=== PATIENT | female | born 1940 | race Hispanic/Latino ===

== ENCOUNTER 2017-02-02 09:03 | Outpatient (CLI) | payer MEDICARE, OTHER ==
--- NOTE | 2017-02-02 09:43 | Mammography Report ---
Bilateral mammogram: Compared to 11/07/13. CAD study utilized. Findings: Predominance adipose tissue bilaterally. No mass or microcalcification. Benign axillary nodes. Impression: Benign findings. Annual followup recommended. BI-RADS CATEGORY: 2 = Benign ACR BI-RADS MAMMOGRAPHIC CODES: 0 = Needs additional imaging evaluation; 1 = Negative; 2 = Benign; 3 = Probably benign; 4 = Suspicious; 5 = Malignant; 6 = Known biopsy-proven malignancy COMMENT: 1. Dense breast tissue, i.e., adenosis, fibrocystic changes, etc., may obscure an underlying neoplasm. 2. Approximately 10% of cancers are not detected with mammography. 3. A negative mammography report should not delay biopsy if a clinically suspicious mass is present. COMMENT: Patient follow-up letters are generated in [employer].
== END 2017-02-02 09:04 | disposition home or self-care (01) ==
LOC: MAMMO 09:03
PROVIDERS: ATTEND Family Medicine Adult Medicine
DX: Z12.31 Encounter for screening mammogram for malignant neoplasm of breast (principal)
CPT/HCPCS: 77067; G0202

== ENCOUNTER 2018-10-04 16:06 | Inpatient (IN) | payer MEDICARE ==
--- NOTE | 2018-10-04 16:15 | Emergency Department Report ---
Blank Doc - Documentation Documentation: This is a 78-year-old female that presents with SOB, weakness, and heart palpa tions. HX of A-fib. This initial assessment/diagnostic orders/clinical plan/treatment(s) is/are subject to change based on patient's health status, clinical progression and re- assessment by fellow clinical providers in the ED. Further treatment and workup at subsequent clinical providers discretion. Patient/guardians urged not to elope from the ED as their condition may be serious if not clinically assessed and managed. Initial orders include: 1- Patient sent to MAIN ED for further evaluation and treatment 2- labs 3- EKG 4- CXR
[2018-10-04 16:40] LABS: Basophils % (Auto) 0.4 % (0.0-1.8); Eosinophils % (Auto) 0.1 % (0.0-4.3); Hematocrit 37.1 % (30.3-42.9); Hemoglobin 12.5 gm/dl (10.1-14.3); Lymphocytes # (Auto) 0.8 K/mm3 (1.2-5.4); Lymphocytes % (Auto) 9.7 % (13.4-35.0); Mean Corpuscular HGB Conc 34 % (30-34); Mean Corpuscular Volume 86 fl (79-97); Monocytes # (Auto) 0.6 K/mm3 (0.0-0.8); Monocytes % (Auto) 7.8 % (0.0-7.3); Platelet Count 196 K/mm3 (140-440); Red Blood Count 4.33 M/mm3 (3.65-5.03); Red Cell Distribution Width 13.7 % (13.2-15.2)
[2018-10-04 16:50] LABS: INR 1.31 (0.87-1.13)
--- NOTE | 2018-10-04 16:52 | XRay Report ---
PROCEDURE: XR CHEST ROUTINE 2V TECHNIQUE: PA and lateral chest radiographs were obtained. HISTORY: Chest Pain COMPARISONS: None. FINDINGS: There is confluent opacity within the right upper lobe distribution. Cardiac and mediastinal contours are within normal range. Pulmonary vasculature is unremarkable. No pleural fluid collection seen. IMPRESSION: Right upper lobe infiltrate most consistent with pneumonia This document is electronically signed by Colton Obando MD., Oct 04 2018 04:50:52 PM ET
[2018-10-04 16:55] LABS: BUN/Creatinine Ratio 24; Blood Urea Nitrogen 22 mg/dL (7-17); Calcium 9.1 mg/dL (8.4-10.2); Hemolysis Index 9
--- NOTE | 2018-10-04 17:34 | Emergency Department Report ---
ED General Adult HPI - General Chief complaint: Weakness Stated complaint: AFIB Time Seen by Provider: 10/04/18 16:14 Source: patient, RN notes reviewed Mode of arrival: Ambulatory Limitations: No Limitations - History of Present Illness Initial comments: Primary care Dr.: Dr. Lopez Cardiology: Dr. Tucker Atrial fibrillation, on systemic anticoagulation This is a 78-year-old female, who presents to the emergency room with a complaint of fevers, cough, malaise, fatigue, generalized weakness. Symptoms present for 3-4 days. They're constant. They worse with physical exertion. It decreased with rest. There is no headache, neck pain, chest pain. There is shortness of breath. There is no abdominal pain. No urinary symptoms. 2 episodes of loose watery diarrhea yesterday. No leg pain. Positive minimal lower extremity swelling. This is a baseline. Patient endorses compliance with medications. No recent antibiotic use. Reports "allergy" to penicillins is hives without anaphylaxis. -: Gradual, days(s) Consistency: constant Improves with: rest Worsens with: movement Associated Symptoms: cough, fever/chills, loss of appetite, malaise, shortness of breath, weakness - Related Data Allergies Allergy/AdvReac Type Severity Reaction Status Date / Time Penicillins Allergy Hives Unverified 11/07/13 08:38 Sulfa (Sulfonamide Allergy Nausea Unverified 11/07/13 08:38 Antibiotics) ED Review of Systems ROS: Stated complaint: AFIB Other details as noted in HPI Constitutional: fever, malaise, weakness Eyes: denies: eye discharge ENT: congestion Respiratory: shortness of breath Cardiovascular: denies: chest pain Gastrointestinal: diarrhea. denies: abdominal pain Genitourinary: denies: dysuria Musculoskeletal: denies: back pain Skin: denies: lesions Neurological: weakness ED Past Medical Hx - Past Medical History Previous Medical History?: Yes Hx Hypertension: Yes Hx Diabetes: Yes Additional medical history: A fib - Social History Smoking Status: Never Smoker ED Physical Exam - General Limitations: No Limitations General appearance: alert, in no apparent distress - Head Head exam: Present: atraumatic, normocephalic - Eye Eye exam: Present: normal appearance, EOMI. Absent: nystagmus - ENT ENT exam: Present: normal exam, normal orophraynx, mucous membranes moist, n ormal external ear exam - Neck Neck exam: Present: normal inspection, full ROM. Absent: tenderness, meningismus - Respiratory Respiratory exam: Present: decreased breath sounds. Absent: respiratory distress, rales, rhonchi, stridor - Cardiovascular Cardiovascular Exam: Present: tachycardia, irregular rhythm, normal heart sounds. Absent: systolic murmur, diastolic murmur, rubs, gallop - GI/Abdominal GI/Abdominal exam: Present: soft. Absent: distended, tenderness, guarding, rebound, rigid, pulsatile mass - Extremities Exam Extremities exam: Present: full ROM, pedal edema, other (2+ pulses noted in the bilateral upper, lower extremities. Compartments soft. No long bony tenderness. The pelvis is stable.). Absent: calf tenderness - Back Exam Back exam: Present: normal inspection, full ROM. Absent: tenderness, CVA tenderness (R), CVA tenderness (L), paraspinal tenderness, vertebral tenderness - Neurological Exam Neurological exam: Present: alert, oriented X3, other (Extraocular movements intact. Tongue midline. No facial droop. Facial sensation intact to light touch in the V1, V2, V3 distribution bilaterally. 5 and 5 strength in 4 extremities.. Sensation is intact to light touch in 4 extremities.). Absent: motor sensory deficit - Psychiatric Psychiatric exam: Present: normal affect, normal mood - Skin Skin exam: Present: warm, dry, intact, normal color. Absent: rash ED Course Vital Signs 10/04/18 10/04/18 10/04/18 16:14 17:49 17:50 Temperature 97.9 F 98.9 F 98.4 F Pulse Rate 125 H 82 Respiratory 18 18 Rate Blood Pressure 127/70 Blood Pressure 132/68 [Right] O2 Sat by Pulse 98 100 Oximetry ED Medical Decision Making - Lab Data Result diagrams: 10/04/18 16:21 10/04/18 16:21 Vital Signs 10/04/18 16:14 Temperature 97.9 F Pulse Rate 125 H Respiratory 18 Rate Blood Pressure 127/70 O2 Sat by Pulse 98 Oximetry Lab Results 10/04/18 10/04/18 10/04/18 Range/Units 16:21 16:21 16:21 WBC 8.0 (4.5-11.0) K/mm3 RBC 4.33 (3.65-5.03) M/mm3 Hgb 12.5 (10.1-14.3) gm/dl Hct 37.1 (30.3-42.9) % MCV 86 (79-97) fl MCH 29 (28-32) pg MCHC 34 (30-34) % RDW 13.7 (13.2-15.2) % Plt Count 196 (140-440) K/mm3 Lymph % (Auto) 9.7 L (13.4-35.0) % [place] % (Auto) 7.8 H (0.0-7.3) % Eos % (Auto) 0.1 (0.0-4.3) % Baso % (Auto) 0.4 (0.0-1.8) % Lymph # 0.8 L (1.2-5.4) K/mm3 [place] # 0.6 (0.0-0.8) K/mm3 Eos # 0.0 (0.0-0.4) K/mm3 Baso # 0.0 (0.0-0.1) K/mm3 Seg Neutrophils % 82.0 H (40.0-70.0) % Seg Neutrophils # 6.6 (1.8-7.7) K/mm3 PT 17.1 H (12.2-14.9) Sec. INR 1.31 H (0.87-1.13) APTT 34.0 (24.2-36.6) Sec. Sodium 130 L (137-145) mmol/L Potassium 3.7 (3.6-5.0) mmol/L Chloride 89.6 L (98-107) mmol/L Carbon Dioxide 24 (22-30) mmol/L Anion Gap 20 mmol/L BUN 22 H (7-17) mg/dL Creatinine 0.9 (0.7-1.2) mg/dL Estimated GFR > 60 ml/min BUN/Creatinine Ratio 24 % Glucose 190 H (65-100) mg/dL Calcium 9.1 (8.4-10.2) mg/dL Troponin T < 0.010 (0.00-0.029) ng/mL - EKG Data -: EKG Interpreted by [place] - EKG Data 10/04/18 18:23 EKG shows atrial fibrillation, variable ventricular rate, 102 bpm, QTC 456 ms, not having chest pain, normal axis, not consistent with ST elevation myocardial infarction. - Radiology Data Radiology results: report reviewed, image reviewed Print Report Referring Physician: JODY DESAI Patient Name: PAUL ANN Date of : 1940 Sex: Female Report Date: 2018-10-04 Report Status: Finalized Findings [facility] [address] [place] [address] XRay Report Signed Patient: PAUL ANN MR#: [id number] : 1940 Acct:[id number] Age/Sex: 78 / F ADM Date: 10/04/18 Loc: ED Attending Dr: Ordering Physician: JODY DESAI NP Date of Service: 10/04/18 Procedure(s): XR chest routine 2V Accession Number(s): [id number] cc: JODY DESAI NP Fluoro Time In Minutes: PROCEDURE: XR CHEST ROUTINE 2V TECHNIQUE: PA and lateral chest radi ographs were obtained. HISTORY: Chest Pain COMPARISONS: None. FINDINGS: There is confluent opacity within the right upper lobe distribution. Cardiac and mediastinal contours are within normal range. Pulmonary vasculature is unremarkable. No pleural fluid collection seen. IMPRESSION: Right upper lobe infiltrate most consistent with pneumonia This document is electronically signed by Colton Sunshine MD., Oct 04 2018 04:50:52 PM ET Transcribed By: NAN Dictated By: DOROTHY SUNSHINE MD Electronically Authenticated By: DOROTHY SUNSHINE MD Signed Date/Time: 10/04/18 9712 - Medical Decision Making Differential diagnosis, including but not limited to: Pneumonia, urinary tract infection, acute coronary syndrome Assessment and plan: 78-year-old female with reported cough, fever, malaise, x- ray suggesting right-sided pneumonia, patient will be admitted to the medical service for presumed community-acquired pneumonia. Currently, heart rate 102 bpm. Discussed plan of care with patient and family, who verbalized understanding, and who are amenable to hospitalization. Hospital physician, Dr. Sinclair to admit to the medical service. Lab Results 10/04/18 10/04/18 10/04/18 Range/Units 16:21 16:21 16:21 WBC 8.0 (4.5-11.0) K/mm3 RBC 4.33 (3.65-5.03) M/mm3 Hgb 12.5 (10.1-14.3) gm/dl Hct 37.1 (30.3-42.9) % MCV 86 (79-97) fl MCH 29 (28-32) pg MCHC 34 (30-34) % RDW 13.7 (13.2-15.2) % Plt Count 196 (140-440) K/mm3 Lymph % (Auto) 9.7 L (13.4-35.0) % [place] % (Auto) 7.8 H (0.0-7.3) % Eos % (Auto) 0.1 (0.0-4.3) % Baso % (Auto) 0.4 (0.0-1.8) % Lymph # 0.8 L (1.2-5.4) K/mm3 [place] # 0.6 (0.0-0.8) K/mm3 Eos # 0.0 (0.0-0.4) K/mm3 Baso # 0.0 (0.0-0.1) K/mm3 Seg Neutrophils % 82.0 H (40.0-70.0) % Seg Neutrophils # 6.6 (1.8-7.7) K/mm3 PT 17.1 H (12.2-14.9) Sec. INR 1.31 H (0.87-1.13) APTT 34.0 (24.2-36.6) Sec. Sodium 130 L (137-145) mmol/L Potassium 3.7 (3.6-5.0) mmol/L Chloride 89.6 L (98-107) mmol/L Carbon Dioxide 24 (22-30) mmol/L Anion Gap 20 mmol/L BUN 22 H (7-17) mg/dL Creatinine 0.9 (0.7-1.2) mg/dL Estimated GFR > 60 ml/min BUN/Creatinine Ratio 24 % Glucose 190 H (65-100) mg/dL Calcium 9.1 (8.4-10.2) mg/dL Troponin T < 0.010 (0.00-0.029) ng/mL Critical care attestation.: If time is entered above; I have spent that time in minutes in the direct care of this critically ill patient, excluding procedure time. ED Disposition Clinical Impression: CAP (community acquired pneumonia), Atrial fibrillation with RVR Disposition: DC-09 OP ADMIT IP TO THIS HOSP Is pt being admited?: Yes Condition: Fair Instructions: Bacterial Pneumonia (ED)
[2018-10-04] MEDS ORDERED: ZITHROMAX PO ONE (17:40)
[2018-10-04] MEDS ORDERED: ROCEPHIN/NS 1 GM/50 ML 1 GM/50 ML BAG IV ONE (17:40)
[2018-10-04] MEDS ORDERED: TYLENOL PO ONE (17:40)
[2018-10-04] MEDS ORDERED: TYLENOL PO PRN (20:48)
[2018-10-04] MEDS ORDERED: ZOFRAN IV PRN (20:48)
[2018-10-04] MEDS ORDERED: MILK OF MAGNESIA PO PRN (20:48)
[2018-10-04] MEDS ORDERED: SODIUM CHLORIDE FLUSH SYRINGE 10 ML IV PRN (20:48)
--- NOTE | 2018-10-04 23:09 | History and Physical Report ---
<KRISTEN LEO - Last Filed: 10/05/18 01:39> History of Present Illness Date of examination: 10/04/18 Date of admission: 10/04/18 20:49 Chief complaint: fevers, cough, malaise, fatigue, generalized weakness History of present illness: Atrial fibrillation, on systemic anticoagulation Patient is a 78-year-old female with PMHx of A. fib (on Eliquis), DM type II, hyperlipidemia, hypertension, who presents to the ER with complaint of fevers, cough, malaise, fatigue, generalized weakness. Patient states that the symptoms have been going on for at least 4 days, the cough is a constant nonproductive cough associated with SOB, weakness, body aches, she states that she had been so weak that she could not get out of bed. Patient also reports lower extremity swellings for which she takes hydrochlorothiazide, she denies headache, di zziness, change in appetite, chest pain, abdominal pain. In the ER patient had a chest x-ray that showed right upper lobe infiltrates most consistent with pneumonia, patient was started on CAP Protocol with antibiotics and admitted for further evaluation and treatments. Past History Past Medical History: diabetes, hypertension, hyperlipidemia Past Surgical History: No surgical history Social history: no significant social history Family history: no significant family history Medications and Allergies Allergies Allergy/AdvReac Type Severity Reaction Status Date / Time Penicillins Allergy Hives Verified 10/04/18 20:55 Sulfa (Sulfonamide Allergy Nausea Verified 10/04/18 20:56 Antibiotics) Home Medications Medication Instructions Recorded Confirmed Last Taken Type Citalopram [celeXA] 20 mg PO DAILY 10/04/18 10/04/18 Unknown History Eliquis 5 mg PO Q12HR 10/04/18 10/04/18 Unknown History Losartan/Hydrochlorothiazide 1 each PO DAILY 10/04/18 10/04/18 Unknown History [Losartan-Hctz 50-12.5 mg Tab] Metoprolol Xl [Metoprolol 50 mg PO DAILY 10/04/18 10/04/18 Unknown History SUCCINATE ER TAB] Rosuvastatin (Nf) 10 mg PO QHS 10/04/18 10/04/18 Unknown History amLODIPine [Norvasc] 5 mg PO DAILY 10/04/18 10/04/18 Unknown History metFORMIN 1,000 mg PO BID 10/04/18 10/04/18 Unknown History Active Meds: Active Medications Acetaminophen (Tylenol) 650 mg PO Q4H PRN PRN Reason: Pain MILD(1-3)/Fever >100.5/MARQUEZ Enoxaparin Sodium (Lovenox) 40 mg SUB-Q QDAY [facility] Famotidine (Pepcid) 20 mg PO BID [facility] Sodium Chloride (Nacl 0.9% 1000 Ml) 1,000 mls @ 75 mls/hr IV DIRECT [facility] Azithromycin 500 mg/ Sodium (Chloride) 250 mls @ 250 mls/hr IV Q24HR [facility] Ceftriaxone Sodium (Rocephin/Ns 1 Gm/50 Ml) 1 gm in 50 mls @ 100 mls/hr IV Q24HR [facility]; Protocol Magnesium Hydroxide (Milk Of Magnesia) 30 ml PO Q4H PRN PRN Reason: Constipation Ondansetron HCl (Zofran) 4 mg IV Q8H PRN PRN Reason: Nausea And Vomiting Sodium Chloride (Sodium Chloride Flush Syringe 10 Ml) 10 ml IV BID [facility] Sodium Chloride (Sodium Chloride Flush Syringe 10 Ml) 10 ml IV PRN PRN PRN Reason: LINE FLUSH Review of Systems Constitutional: fever, chills, anorexia, weakness Ears, nose, mouth and throat: deferred Breasts: deferred Cardiovascular: chest pain Respiratory: cough, dyspnea on exertion Gastrointestinal: abdominal pain Genitourinary Female: dyspareunia Integumentary: deferred Exam - Constitutional Vitals: Temp Pulse Resp BP Pulse Ox 99.2 F 98 H 19 151/81 96 10/04/18 21:44 10/04/18 21:44 10/04/18 21:44 10/04/18 21:44 10/04/18 21:44 General appearance: Present: no acute distress - EENT Eyes: Present: EOM intact ENT: hearing intact - Neck Neck: Present: normal ROM - Respiratory Respiratory effort: normal Respiratory: right: diminished, left: CTA - Cardiovascular Rhythm: regularly irregular - Extremities Extremities: Full ROM Peripheral Pulses: within normal limits - Abdominal General gastrointestinal: Present: deferred Female genitourinary: Present: deferred - Rectal Rectal Exam: deferred - Integumentary Integumentary: Present: warm, dry - Musculoskeletal Musculoskeletal: strength equal bilaterally - Psychiatric Psychiatric: cooperative - Neurologic Neurologic: moves all extremities Results - Labs CBC & Chem 7: 05/29/19 16:21 10/04/18 16:21 Labs: Laboratory Last Values WBC 8.0 K/mm3 (4.5-11.0) 10/04/18 16:21 RBC 4.33 M/mm3 (3.65-5.03) 10/04/18 16:21 Hgb 12.5 gm/dl (10.1-14.3) 10/04/18 16:21 Hct 37.1 % (30.3-42.9) 10/04/18 16:21 MCV 86 fl (79-97) 10/04/18 16:21 MCH 29 pg (28-32) 10/04/18 16:21 MCHC 34 % (30-34) 10/04/18 16:21 RDW 13.7 % (13.2-15.2) 10/04/18 16:21 Plt Count 196 K/mm3 (140-440) 10/04/18 16:21 Lymph % (Auto) 9.7 % (13.4-35.0) L 10/04/18 16:21 [place] % (Auto) 7.8 % (0.0-7.3) H 10/04/18 16:21 Eos % (Auto) 0.1 % (0.0-4.3) 10/04/18 16:21 Baso % (Auto) 0.4 % (0.0-1.8) 10/04/18 16:21 Lymph # 0.8 K/mm3 (1.2-5.4) L 10/04/18 16:21 [place] # 0.6 K/mm3 (0.0-0.8) 10/04/18 16:21 Eos # 0.0 K/mm3 (0.0-0.4) 10/04/18 16:21 Baso # 0.0 K/mm3 (0.0-0.1) 10/04/18 16:21 Seg Neutrophils % 82.0 % (40.0-70.0) H 10/04/18 16:21 Seg Neutrophils # 6.6 K/mm3 (1.8-7.7) 10/04/18 16:21 PT 17.1 Sec. (12.2-14.9) H 10/04/18 16:21 INR 1.31 (0.87-1.13) H 10/04/18 16:21 APTT 34.0 Sec. (24.2-36.6) 10/04/18 16:21 Sodium 130 mmol/L (137-145) L 10/04/18 16:21 Potassium 3.7 mmol/L (3.6-5.0) 10/04/18 16:21 Chloride 89.6 mmol/L (98-107) L 10/04/18 16:21 Carbon Dioxide 24 mmol/L (22-30) 10/04/18 16:21 20 mmol/L 10/04/18 16:21 BUN 22 mg/dL (7-17) H 10/04/18 16:21 0.9 mg/dL (0.7-1.2) 10/04/18 16:21 Estimated GFR > 60 ml/min 10/04/18 16:21 24 % 10/04/18 16:21 Glucose 190 mg/dL (65-100) H 10/04/18 16:21 Lactic Acid 2.30 mmol/L (0.7-2.0) H* 10/04/18 18:14 Calcium 9.1 mg/dL (8.4-10.2) 10/04/18 16:21 Magnesium 2.10 mg/dL (1.7-2.3) 10/04/18 18:15 41 units/L (30-135) 10/04/18 18:15 < 0.010 ng/mL (0.00-0.029) 10/04/18 16:21 Assessment and Plan Assessment and plan: 1. Right upper lobe pneumonia (CAP) 2. A. fib (on Eliquis) 3. DM type II 4. Hyperlipidemia 5. Hypertension 6. Dehydration 7. Acute cough (due to pneumonia) Plan: Patient is admitted for CAP Started on Protocol with Zithromax/Rocephin IV fluids for hydration Accu-Chek ACHS with insulin per sliding scale Tessalon cough PRN for cough Resume home meds No DVT prophylaxis (patient is on Eliquis) Advance Directives: Yes VTE prophylaxis?: Chemical Contraindication Mechanical VTE Prophylaxis: Contraindicated (On Eliquis) Plan of care discussed with patient/family: Yes <AYSE DELEON - Last Filed: 10/05/18 23:45> History of Present Illness Date of admission: 10/04/18 20:49 Medications and Allergies Active Meds: Active Medications Acetaminophen (Tylenol) 650 mg PO Q4H PRN PRN Reason: Pain MILD(1-3)/Fever >100.5/MARQUEZ Amlodipine Besylate (Norvasc) 5 mg PO DAILY [facility] Last Admin: 10/05/18 10:26 Dose: 5 mg Documented by: Apixaban (Eliquis) 5 mg PO Q12HR [facility] Last Admin: 10/05/18 22:51 Dose: 5 mg Documented by: Atorvastatin Calcium (Lipitor) 20 mg PO QHS [facility] Last Admin: 10/05/18 22:51 Dose: 20 mg Documented by: Benzonatate (Tessalon Perles) 200 mg PO Q8HR [facility] Last Admin: 10/05/18 22:51 Dose: 200 mg Documented by: Citalopram Hydrobromide (Celexa) 20 mg PO DAILY [facility] Last Admin: 10/05/18 10:05 Dose: 20 mg Documented by: Dextrose (D50w (25gm) Syringe) 50 ml IV PRN PRN PRN Reason: Hypoglycemia Famotidine (Pepcid) 20 mg PO BID [facility] Last Admin: 10/05/18 22:51 Dose: 20 mg Documented by: Hydrochlorothiazide (Hctz) 12.5 mg PO QDAY [facility] Last Admin: 10/05/18 10:25 Dose: 12.5 mg Documented by: Sodium Chloride (Nacl 0.9% 1000 Ml) 1,000 mls @ 75 mls/hr IV DIRECT [facility] Last Admin: 10/04/18 23:12 Dose: 75 mls/hr Documented by: Azithromycin 500 mg/ Sodium (Chloride) 250 mls @ 250 mls/hr IV Q24HR [facility] Last Admin: 10/05/18 12:24 Dose: 250 mls/hr Documented by: Ceftriaxone Sodium (Rocephin/Ns 1 Gm/50 Ml) 1 gm in 50 mls @ 100 mls/hr IV Q24HR [facility]; Protocol Last Admin: 10/05/18 11:38 Dose: 100 mls/hr Documented by: Insulin Human Lispro (Humalog) 0 unit SUB-Q ACHS [facility]; Protocol Last Admin: 10/05/18 22:52 Dose: Not Given Documented by: Losartan Potassium (Cozaar) 50 mg PO QDAY [facility] Last Admin: 10/05/18 11:00 Dose: 50 mg Documented by: Magnesium Hydroxide (Milk Of Magnesia) 30 ml PO Q4H PRN PRN Reason: Constipation Metoprolol Succinate (Toprol Xl) 50 mg PO DAILY [facility] Last Admin: 10/05/18 10:28 Dose: 50 mg Documented by: Ondansetron HCl (Zofran) 4 mg IV Q8H PRN PRN Reason: Nausea And Vomiting Sodium Chloride (Sodium Chloride Flush Syringe 10 Ml) 10 ml IV BID [facility] Last Admin: 10/05/18 22:52 Dose: 10 ml Documented by: Sodium Chloride (Sodium Chloride Flush Syringe 10 Ml) 10 ml IV PRN PRN PRN Reason: LINE FLUSH Exam - Constitutional Vitals: Temp Pulse Resp BP Pulse Ox 98.3 F 91 H 20 133/73 94 10/05/18 20:39 10/05/18 20:39 10/05/18 20:39 10/05/18 20:39 10/05/18 20:39 Results - Labs CBC & Chem 7: 10/04/18 16:21 10/04/18 16:21 Labs: Laboratory Last Values WBC 8.0 K/mm3 (4.5-11.0) 10/04/18 16:21 RBC 4.33 M/mm3 (3.65-5.03) 10/04/18 16:21 Hgb 12.5 gm/dl (10.1-14.3) 10/04/18 16:21 Hct 37.1 % (30.3-42.9) 10/04/18 16:21 MCV 86 fl (79-97) 10/04/18 16:21 MCH 29 pg (28-32) 10/04/18 16:21 MCHC 34 % (30-34) 10/04/18 16:21 RDW 13.7 % (13.2-15.2) 10/04/18 16:21 Plt Count 196 K/mm3 (140-440) 10/04/18 16:21 Lymph % (Auto) 9.7 % (13.4-35.0) L 10/04/18 16:21 [place] % (Auto) 7.8 % (0.0-7.3) H 10/04/18 16:21 Eos % (Auto) 0.1 % (0.0-4.3) 10/04/18 16:21 Baso % (Auto) 0.4 % (0.0-1.8) 10/04/18 16:21 Lymph # 0.8 K/mm3 (1.2-5.4) L 10/04/18 16:21 [place] # 0.6 K/mm3 (0.0-0.8) 10/04/18 16:21 Eos # 0.0 K/mm3 (0.0-0.4) 10/04/18 16:21 Baso # 0.0 K/mm3 (0.0-0.1) 10/04/18 16:21 Seg Neutrophils % 82.0 % (40.0-70.0) H 10/04/18 16:21 Seg Neutrophils # 6.6 K/mm3 (1.8-7.7) 10/04/18 16:21 PT 17.1 Sec. (12.2-14.9) H 10/04/18 16:21 INR 1.31 (0.87-1.13) H 10/04/18 16:21 APTT 34.0 Sec. (24.2-36.6) 10/04/18 16:21 Sodium 130 mmol/L (137-145) L 10/04/18 16:21 Potassium 3.7 mmol/L (3.6-5.0) 10/04/18 16:21 Chloride 89.6 mmol/L (98-107) L 10/04/18 16:21 Carbon Dioxide 24 mmol/L (22-30) 10/04/18 16:21 20 mmol/L 10/04/18 16:21 BUN 22 mg/dL (7-17) H 10/04/18 16:21 0.9 mg/dL (0.7-1.2) 10/04/18 16:21 Estimated GFR > 60 ml/min 10/04/18 16:21 24 % 10/04/18 16:21 Glucose 190 mg/dL (65-100) H 10/04/18 16:21 POC Glucose 111 (70-105) H 10/05/18 22:50 Lactic Acid 1.50 mmol/L (0.7-2.0) 10/04/18 22:43 Calcium 9.1 mg/dL (8.4-10.2) 10/04/18 16:21 Magnesium 2.10 mg/dL (1.7-2.3) 10/04/18 18:15 41 units/L (30-135) 10/04/18 18:15 < 0.010 ng/mL (0.00-0.029) 10/04/18 16:21 Assessment and Plan Assessment and plan: I personally discussed the patient with the MARKETING SERVICES REP-C and I agree with the above assessment and plan
[2018-10-04] MEDS: PEPCID PO SCH (23:12)
[2018-10-04] MEDS: NACL 0.9% 1000 ML 1,000 ML IV SCH (23:12)
[2018-10-04] MEDS: SODIUM CHLORIDE FLUSH SYRINGE 10 ML IV SCH (23:13)
[2018-10-05] MEDS ORDERED: D50W (25GM) Syringe IV PRN (01:59)
[2018-10-05] MEDS: TESSALON PERLES PO SCH ×3 (06:12→22:51)
[2018-10-05] MEDS: HumaLOG SUB-Q SCH ×4 (08:30→22:52)
[2018-10-05] MEDS ORDERED: NON-FORMULARY (Eliquis 5 MG) PO SCH (10:00)
[2018-10-05] MEDS ORDERED: NON-FORMULARY (Losartan/Hydrochlorothiazide [Losartan-Hctz 50-12.5 Mg Tab] 1 EACH) PO SCH (10:00)
[2018-10-05] MEDS ORDERED: LOVENOX SUB-Q SCH (10:00)
[2018-10-05] MEDS: celeXA PO SCH (10:05)
[2018-10-05] MEDS: ELIQUIS PO SCH ×2 (10:24→22:51)
[2018-10-05] MEDS: HCTZ PO SCH (10:25)
[2018-10-05] MEDS: NORVASC PO SCH (10:26)
[2018-10-05] MEDS: PEPCID PO SCH ×2 (10:26→22:51)
[2018-10-05] MEDS: SODIUM CHLORIDE FLUSH SYRINGE 10 ML IV SCH ×2 (10:27→22:52)
[2018-10-05] MEDS: TOPROL XL PO SCH (10:28)
[2018-10-05] MEDS: COZAAR PO SCH (11:00)
[2018-10-05] MEDS: ROCEPHIN/NS 1 GM/50 ML 1 GM/50 ML BAG IV SCH (11:38)
[2018-10-05] MEDS: ZITHROMAX 500 MG in NACL 0.9% 250ML 250 ML IV SCH (12:24)
--- NOTE | 2018-10-05 13:51 | Progress Note ---
Assessment and Plan 1. Right upper lobe pneumonia (CAP) 2. A. fib (on Eliquis) 3. DM type II 4. Hyperlipidemia 5. Hypertension 6. Dehydration with hyponatremia 7. Acute cough (due to pneumonia) Plan: Patient is admitted for CAP Started on Protocol with Zithromax/Rocephin Continue IV fluids for hydration Accu-Chek ACHS with insulin per sliding scale, hold metformin Tessalon cough PRN for cough Resumed home meds No DVT prophylaxis (patient is on Eliquis) We'll follow blood culture Possible DC tomorrow if blood culture negative and clinically stable Subjective Date of service: 10/05/18 Interval history: Patient seen and examined. Medical records and medication list reviewed. No acute event overnight noted by the RN. Patient denies any chest pain or difficulty breathing. Patient is tolerating diet. Complains of generalized weakness Discussed plan of care at bedside with patient. Objective - Constitutional Vitals: Vital Signs - 12hr 10/05/18 10/05/18 10/05/18 03:23 07:42 07:43 Temperature 100.2 F H 99.3 F Pulse Rate 103 H 94 H 83 Respiratory 20 18 Rate Blood Pressure 139/65 140/75 O2 Sat by Pulse 97 96 98 Oximetry 10/05/18 10/05/18 11:00 12:49 Temperature 98.9 F Pulse Rate 101 H Respiratory 20 20 Rate Blood Pressure 140/69 O2 Sat by Pulse 97 Oximetry General appearance: Present: no acute distress, obese - EENT Eyes: PERRL, EOM intact ENT: hearing intact, clear oral mucosa Ears: bilateral: normal - Neck Neck: supple, normal ROM - Respiratory Respiratory effort: normal Respiratory: right: rales - Cardiovascular Rhythm: regular Heart Sounds: Present: S1 & S2. Absent: gallop, rub Extremities: pulses intact, No edema, normal color, Full ROM - Gastrointestinal General gastrointestinal: Present: soft, non-tender, non-distended, normal bowel sounds - Integumentary Integumentary: clear, warm, dry - Musculoskeletal Musculoskeletal: 1, strength equal bilaterally - Neurologic Neurologic: moves all extremities - Psychiatric Psychiatric: memory intact, appropriate mood/affect, intact judgment & insight - Labs CBC & Chem 7: 10/04/18 16:21 10/04/18 16:21 Labs: Abnormal lab results 10/04/18 10/04/18 10/04/18 Range/Units 16:21 16:21 16:21 Lymph % (Auto) 9.7 L (13.4-35.0) % Barry % (Auto) 7.8 H (0.0-7.3) % Lymph # 0.8 L (1.2-5.4) K/mm3 Seg Neutrophils % 82.0 H (40.0-70.0) % PT 17.1 H (12.2-14.9) Sec. INR 1.31 H (0.87-1.13) Sodium 130 L (137-145) mmol/L Chloride 89.6 L (98-107) mmol/L BUN 22 H (7-17) mg/dL Glucose 190 H (65-100) mg/dL POC Glucose (70-105) Lactic Acid (0.7-2.0) mmol/L 10/04/18 10/05/18 10/05/18 Range/Units 18:14 08:36 12:02 Lymph % (Auto) (13.4-35.0) % Barry % (Auto) (0.0-7.3) % Lymph # (1.2-5.4) K/mm3 Seg Neutrophils % (40.0-70.0) % PT (12.2-14.9) Sec. INR (0.87-1.13) Sodium (137-145) mmol/L Chloride (98-107) mmol/L BUN (7-17) mg/dL Glucose (65-100) mg/dL POC Glucose 135 H 151 H (70-105) Lactic Acid 2.30 H* (0.7-2.0) mmol/L
[2018-10-05] MEDS ORDERED: NON-FORMULARY (Rosuvastatin (Nf) 10 MG) PO SCH (22:00)
[2018-10-06] MEDS: TESSALON PERLES PO SCH ×3 (04:37→14:32)
[2018-10-06] MEDS: NACL 0.9% 1000 ML 1,000 ML IV SCH (04:39)
[2018-10-06] MEDS: HumaLOG SUB-Q SCH ×2 (09:06→12:59)
[2018-10-06] MEDS: celeXA PO SCH (10:55)
[2018-10-06] MEDS: COZAAR PO SCH (10:55)
[2018-10-06] MEDS: TOPROL XL PO SCH (10:56)
[2018-10-06] MEDS: ELIQUIS PO SCH (10:56)
[2018-10-06] MEDS: PEPCID PO SCH (10:56)
[2018-10-06] MEDS: NORVASC PO SCH (10:56)
[2018-10-06] MEDS: ZITHROMAX 500 MG in NACL 0.9% 250ML 250 ML IV SCH (10:57)
[2018-10-06] MEDS: ROCEPHIN/NS 1 GM/50 ML 1 GM/50 ML BAG IV SCH (10:57)
[2018-10-06] MEDS: SODIUM CHLORIDE FLUSH SYRINGE 10 ML IV SCH (10:57)
[2018-10-06] MEDS: HCTZ PO SCH (10:57)
[2018-10-06 11:57] VITALS: BP 115/82
--- NOTE | 2018-10-06 14:11 | Discharge Summary ---
Providers - Providers Date of Admission: 10/04/18 20:49 Date of discharge: 10/06/18 Attending physician: VIKASH WEST 10/05/18 01:59 Consult to Dietitian/Nutrition [CONS] Routine Physician Instructions: Reason For Exam: Reason for Consult: Diet education Primary care physician: RUSTAM CARBALLO Hospitalization Condition: Fair Pertinent studies: cxr Hospital course: Patient is a 78-year-old female with PMHx of A. fib (on Eliquis), DM type II, hyperlipidemia, hypertension, who presented to the ER with complaint of fevers, cough, malaise, fatigue, generalized weakness have been going on for at least 4 days. In the ER patient had a chest x-ray that showed right upper lobe infiltrates most consistent with pneumonia, patient was started on CAP Protocol with antibiotics and admitted for further evaluation and treatments. She was Started on Zithromax/Rocephin, IV fluids for hydration, Accu-Chek ACHS with insulin per sliding scale, held metformin, Tessalon cough PRN for cough, Resumed home meds, had negative blood culture. She improved clinically and then discharged home in stable condition. Discharge diagnosis: 1. Right upper lobe pneumonia (CAP) 2. A. fib (on Eliquis) 3. DM type II 4. Hyperlipidemia 5. Hypertension 6. Dehydration with hyponatremia 7. Acute cough (due to pneumonia) Disposition: TO HOME OR SELFCARE Time spent for discharge: 34 minutes Core Measure Documentation - Palliative Care Palliative Care/ Comfort Measures: Not Applicable - Core Measures Any of the following diagnoses?: none Exam - Physical Exam Narrative exam: General appearance: Present: no acute distress, obese - EENT Eyes: PERRL, EOM intact ENT: hearing intact, clear oral mucosa Ears: bilateral: normal - Neck Neck: supple, normal ROM - Respiratory Respiratory effort: normal Respiratory: right: rales - Cardiovascular Rhythm: regular Heart Sounds: Present: S1 & S2. Absent: gallop, rub Extremities: pulses intact, No edema, normal color, Full ROM - Gastrointestinal General gastrointestinal: Present: soft, non-tender, non-distended, normal bowel sounds - Integumentary Integumentary: clear, warm, dry - Musculoskeletal Musculoskeletal: 1, strength equal bilaterally - Neurologic Neurologic: moves all extremities - Psychiatric Psychiatric: memory intact, appropriate mood/affect, intact judgment & insight - Constitutional Vitals: Temp Pulse Resp BP Pulse Ox 97.8 F 76 18 115/82 98 10/06/18 08:18 10/06/18 11:55 10/06/18 08:18 10/06/18 11:55 10/06/18 11:55 Plan Activity: advance as tolerated Weight Bearing Status: Weight Bear as Tolerated Diet: low fat, low salt, diabetic Follow up with: RUSTAM CARBALLO MD [Primary Care Provider] - 7 Days Prescriptions: levoFLOXacin [Levaquin] 750 mg PO QDAY #5 tablet
== END 2018-10-06 15:59 | disposition home or self-care (01) | DRG 194 ==
LOC: ED 16:06 → 4A 20:49
PROVIDERS: ADMIT Internal Medicine; ATTEND Internal Medicine
DX: J18.9 Pneumonia, unspecified organism (principal); E87.1 Hypo-osmolality and hyponatremia; I48.91 Unspecified atrial fibrillation; E11.9 Type 2 diabetes mellitus without complications; E78.5 Hyperlipidemia, unspecified; E86.0 Dehydration; Z79.01 Long term (current) use of anticoagulants; Z88.0 Allergy status to penicillin; Z88.2 Allergy status to sulfonamides; Z79.899 Other long term (current) drug therapy; Z79.84 Long term (current) use of oral hypoglycemic drugs
CPT/HCPCS: 36415; 71046; 80048; 82140; 82550; 82962; 83735; 84484; 85025; 85610; 85730; 87040; 93005; 93010; 96365; 99285; G0378; A9270-GY; J0456; J0696; J7030; J7050

== ENCOUNTER 2018-10-31 09:50 | Outpatient (CLI) | payer MEDICARE ==
--- NOTE | 2018-10-31 10:33 | XRay Report ---
ROUTINE CHEST, TWO VIEWS: HISTORY: Followup pneumonia. The trachea, heart, mediastinal contour, lung be and bony thorax are unremarkable. IMPRESSION: Right upper lobe pneumonia has resolved since 10/04/18. Unremarkable chest films.
== END 2018-10-31 09:51 | disposition home or self-care (01) ==
LOC: XRAY 09:50
PROVIDERS: ATTEND Family Medicine Adult Medicine
DX: J18.9 Pneumonia, unspecified organism (principal); I10 Essential (primary) hypertension
CPT/HCPCS: 71046